=== PATIENT | female | born 1960 | race Caucasian/White ===

== ENCOUNTER 2018-01-18 00:37 | Inpatient (IN) | payer OTHER ==
[2018-01-18] MEDS: FAMOTIDINE 20 MG TAB PO ×2 (01:27→15:04)
[2018-01-18] MEDS ORDERED: morphine 2 MG INJ IV (01:30)
[2018-01-18] MEDS ORDERED: ONDANSETRON 4 MG TAB PO (01:30)
[2018-01-18] MEDS ORDERED: NACL 0.9% 3 ML SYG IV (01:30)
[2018-01-18] MEDS ORDERED: DOCUSATE SODIUM 100 MG CAP PO (01:30)
[2018-01-18] MEDS ORDERED: MAGNESIUM HYDROXIDE 30ML CUP PO (01:30)
[2018-01-18] MEDS ORDERED: ACETAMINOPHEN 325 MG TAB PO (01:30)
[2018-01-18] MEDS ORDERED: ZOLPIDEM 5 MG TAB PO (01:30)
[2018-01-18] MEDS: D5W-0.45 NACL + KCL 20 MEQ 1,000 ML IV (02:00)
[2018-01-18 07:20] LABS: ADD MAN DIFF? NO
[2018-01-18 07:25] LABS: BASOPHILS % 0.5 % (0.0-2.0); EOSINOPHILS # 0.1 10^3/ul (0.0-0.5); EOSINOPHILS % 0.7 % (0.0-7.0); HEMATOCRIT 37.6 % (37.0-47.0); HEMOGLOBIN 12.1 g/dl (12.0-16.0); LYMPHOCYTES # 1.9 10^3/ul (0.8-2.9); LYMPHOCYTES % 25.2 % (15.0-51.0); MEAN CORPUSCULAR HEMOGLOBIN 27.9 pg (29.0-33.0); MEAN CORPUSCULAR HGB CONC 32.2 g/dl (32.0-37.0); MEAN CORPUSCULAR VOLUME 86.8 fl (82.0-101.0); MEAN PLATELET VOLUME 10.9 fl (7.4-10.4); MONOCYTE # 0.6 10^3/ul (0.3-0.9); MONOCYTES % 8.2 % (0.0-11.0); NEUTROPHIL # 4.9 10^3/ul (1.6-7.5); NEUTROPHILS % 65.1 % (39.0-77.0); PLATELET COUNT 223 10^3/UL (140-415); RED BLOOD COUNT 4.33 10^6/ul (4.20-5.40); RED CELL DISTRIBUTION WIDTH 13.6 % (11.5-14.5)
[2018-01-18 07:25] LABS: WHITE BLOOD COUNT 7.5 10^3/ul (4.8-10.8)
[2018-01-18 07:55] LABS: ALANINE AMINOTRANSFERASE 30 IU/L (13-69); ALBUMIN 3.5 g/dl (3.3-4.9); ALBUMIN/GLOBULIN RATIO 1.25; ALKALINE PHOSPHATASE 45 IU/L (42-121); ANION GAP 10 (8-16); ASPARTATE AMINO TRANSFERASE 28 IU/L (15-46); BILIRUBIN,INDIRECT 0.6 mg/dl (0-1.1); BILIRUBIN,TOTAL 0.6 mg/dl (0.2-1.3); BLOOD UREA NITROGEN 13 mg/dl (7-20); CALCIUM 8.3 mg/dl (8.4-10.2); CARBON DIOXIDE 27 mmol/L (21-31); CHLORIDE 110 mmol/L (97-110); CREATININE 0.63 mg/dl (0.44-1.00); GLUCOSE 93 mg/dl (70-220); POTASSIUM 3.9 mmol/L (3.5-5.1); SODIUM 143 mmol/L (135-144); TOTAL PROTEIN 6.3 g/dl (6.1-8.1)
[2018-01-18 08:09] LABS: D-DIMER 244.97 ng/ml (<460)
[2018-01-18 08:12] LABS: TROPONIN-I < 0.012 ng/ml (0.000-0.120)
[2018-01-18 08:45] LABS: ERYTHROCYTE SEDIMENTATION RATE 5 mm/Hr (0-30)
[2018-01-18] MEDS: ASPIRIN 81 MG TAB PO (09:00)
[2018-01-18] MEDS: REGADENOSON 0.4 MG/5 ML SYG (13:04)
[2018-01-18] MEDS: LISINOPRIL 10 MG TAB PO (15:00)
[2018-01-18] MEDS: ENOXAPARIN 40 MG/0.4 ML SYG SC (15:00)
[2018-01-18] MEDS: CLOPIDOGREL 75 MG TAB PO (15:04)
[2018-01-18] MEDS: PAROXETINE 10 MG TAB PO (15:04)
[2018-01-18] MEDS: METOPROLOL (XL) 25 MG TAB PO (15:06)
[2018-01-18] MEDS ORDERED: ATORVASTATIN 20 MG TAB PO (21:00)
== END 2018-01-18 15:43 | disposition home or self-care (01) | DRG 313 ==
LOC: TEL 00:37
DX: R07.89 Other chest pain (principal); I69.954 Hemiplegia and hemiparesis following unspecified cerebrovascular disease affecting left non-dominant side; I25.10 Atherosclerotic heart disease of native coronary artery without angina pectoris; I10 Essential (primary) hypertension; F41.9 Anxiety disorder, unspecified; Z95.5 Presence of coronary angioplasty implant and graft; Z79.02 Long term (current) use of antithrombotics/antiplatelets; Z79.82 Long term (current) use of aspirin
CPT/HCPCS: 78452; 80053; 84443; 84484; 85025; 85378; 85651; 93017; 93306